=== PATIENT | male | born 1970 | race Caucasian/White ===

== ENCOUNTER 2017-06-13 10:23 | Emergency (ER) | payer SELFPAY | END 2017-06-13 12:12 | disposition left against medical advice (07) | LOC: ERS 10:23 | DX: Z53.21 Procedure and treatment not carried out due to patient leaving prior to being seen by health care provider (principal) ==

== ENCOUNTER 2017-08-03 07:42 | Outpatient (CLI) | payer OTHER ==
--- NOTE | 2017-08-03 10:49 | MRI ---
MRI OF THE RIGHT SHOULDER: DATE: 08/03/17. PROVIDED CLINICAL HISTORY: Right shoulder pain. FINDINGS: Components of the rotator cuff appear intact. The long-head biceps tendon appears intact and normall y located. The glenoid labrum and glenohumeral left cartilage are suboptimally evaluated without joint distentio n but appears grossly normal. The amount of fluid within the glenohumeral joint appears physiologic. There is slightly greater seema n physiologic subacromial subdeltoid bursal fluid. No focal concerning regional marrow or muscular signal abnormality is evident. Minimal subcortical c yst-like changes seen within the posterior greater tuberosity. IMPRESSION: Slightly greater than physiologic subacromial subdeltoid bursal fluid, which could reflect mild bursi tis. No evidence of rotator cuff tear. POS: [facility]
--- NOTE | 2017-08-03 10:50 | MRI ---
MRI RIGHT HUMERUS: 08/03/2017 PROVIDED CLINICAL HISTORY: Right arm pain. FINDINGS: There is patchy increased signal intensity on fluid sensitive sequences involving the medial and late ral heads of the triceps muscle, compatible with low grade muscular strain. Regional marrow and musc ular signal appear otherwise normal. The biceps, brachialis, and triceps tendon insertions appear no rmal. The courses of the regional major neurovascular structures appear unremarkable. IMPRESSION: Findings compatible with low grade muscular strain involving the triceps musculature. POS: [id number]
== END 2017-08-03 07:43 | disposition home or self-care (01) ==
LOC: TBSIIMAG 07:42
PROVIDERS: ATTEND Family Medicine
DX: S49.91XA Unspecified injury of right shoulder and upper arm, initial encounter (principal)